=== PATIENT | male | born 1945 ===

== ENCOUNTER 2018-02-11 06:48 | Inpatient (IN) | payer MEDICARE ==
[2018-02-04 09:44] VITALS: BMI 41.4
[2018-02-11] MEDS ORDERED: Lactated Ringer's 1,000 ML IV ONE (08:00)
[2018-02-11] MEDS ORDERED: Lidocaine 2% Jelly (Uro-Jet) ONE (09:05)
[2018-02-11] MEDS ORDERED: cefTRIAXone (Rocephin) 1 gm Inj ONE (09:05)
[2018-02-11] MEDS ORDERED: Propofol 10 mg/ml Inj (20 ML) ONE (09:35)
[2018-02-11] MEDS ORDERED: Etomidate 20 mg/10ml Inj IV ONE (09:35)
[2018-02-11] MEDS ORDERED: MANNITOL IR ONE ×2 (11:03)
[2018-02-11] MEDS ORDERED: SORBITOL IR ONE ×2 (11:03)
[2018-02-11] MEDS ORDERED: Lactated Ringer's 1,000 ML IV SCH (11:15)
[2018-02-11] MEDS ORDERED: SODIUM CHLORIDE 3,000 ML IR ONE ×2 (12:30)
--- NOTE | 2018-02-11 23:23 | OP ---
PROCEDURE DATE: 02/11/2018 PREOPERATIVE DIAGNOSIS: Benign prostatic hypertrophy. POSTOPERATIVE DIAGNOSIS: Benign prostatic hypertrophy. PROCEDURE PERFORMED: Transurethral resection of prostate. DESCRIPTION OF PROCEDURE: The patient was placed on the operating room table in the dorsal lithotomy position after he was given general anesthesia. The area of the groin was draped and prepped. Using a 24 continuous flow resectoscope, I entered into the bladder atraumatically, identified the adenoma that needed to be resected and began resecting the lateral lobes which were the principal areas of growth, that were removed. There was some bleeding noted throughout the procedure, which I was able to cauterize and maintained vision. Once I had a complete opening from the verumontanum into the bladder, I then re-identified the ureteral orifices, removed all the prostatic fragments and then a #24 three-way Stahl catheter was inserted. CBI was begun prior to the patient leaving the operating room. The outflow was completely clear. I estimated the blood loss to be about 100 mL during the procedure. No intraoperative complications noted. Jackie Stafford MD
[2018-02-12 08:55] VITALS: BP 146/77
[2018-02-12 08:56] VITALS: PULSE 90; RESP 20; TEMP 98.9; O2SAT 95
[2018-02-12] MEDS ORDERED: ERGOCALCIFEROL PO SCH (09:00)
== END 2018-02-12 11:24 | disposition home or self-care (01) | DRG 714 ==
LOC: H.OPSURG 06:48 → H.MEDSURG1 12:16 → H.OPSURG 18:34
PROVIDERS: ADMIT Urology; ATTEND Urology
PROC: 0VT08ZZ Resection of Prostate, Via Natural or Artificial Opening Endoscopic (ICD-10-PCS; principal; 2018-02-11 08:45)
DX: N40.0 Benign prostatic hyperplasia without lower urinary tract symptoms (principal)